=== PATIENT | female | born 1985 | race Caucasian/White ===

== ENCOUNTER 2017-09-11 15:32 | Emergency (ER) | payer MEDICAID, SELFPAY ==
[2017-09-11 15:33] VITALS: BP 107/75; PULSE 143; RESP 22; TEMP 37.6; O2SAT 98; BMI 32.2
[2017-09-11] MEDS: Acetaminophen 325 MG Tablet 650 MG PO (15:59)
[2017-09-11] MEDS: 0.9% Normal Saline 1,000 ML 1000 ML IV ×2 (16:02→17:44)
[2017-09-11 16:04] VITALS: PULSE 134
[2017-09-11 16:21] LABS: Absolute Lymphocyte Count 0.65 X10^3/ul (0.83-4.51); Absolute Neutrophil Count 10.6 X10^3/uL (2.0-7.7); Basophil# 0.01 X10^3/uL; Basophil% 0.1 % (0-1); Eosinophil# 0.03 X10^3/uL; Eosinophils% 0.3 % (0-5); Hematocrit 37.6 % (37-47); Hemoglobin 12.3 g/dl (12.0-15.0); Lymphocyte # 0.65 X10^3/ul (4.0); Lymphocyte % 5.4 % (19-41); Mean Corp Hgb Conc 32.7 g/gl (32-36); Mean Corpuscular Hgb 28.4 pg (27.0-32.0); Mean Corpuscular Volume 86.8 fL (81-99); Mean Platelet Vol. 9.8 fl (6.2-12.0); Monocyte# 0.67 X10^3/uL; Monocyte% 5.6 % (0-10); Neutrophil # 10.56 X10^3/uL (2.7-7.7); Neutrophil % 88.5 % (47-70); Platelet Count 291 K/mm3 (150-450); RBC Distribution Width CV 13.4 % (11.6-14.6); RBC Distribution Width SD 42.9 fl (35.1-43.9); Red Blood Count 4.33 M/mm3 (4.2-5.4); White Blood Count 11.9 K/mm3 (4.4-11.0)
[2017-09-11 16:23] LABS: Anion Gap 11 (5-15); BUN 4 mg/dL (7-18); BUN/Creat Ratio 7.5 RATIO (10-20); Calcium,Total 8.3 mg/dL (8.5-10.1); Chloride 104 mmol/L (98-107); Creatinine, Serum 0.54 mg/dL (0.55-1.02); EST Glomerular Filtration Rate 140 mL/min (>60); Est Glom Filt Rate - Afr Amer 169 mL/min (>60); Estimated Creatinine Clearance 123.72 ml/min; Glucose 93 mg/dL (74-106); Potassium 3.3 mmol/L (3.5-5.1); Sodium Level 137 mmol/L (136-145)
[2017-09-11 16:36] LABS: POSITIVE COUNT NO; POSITIVE DIFFERENTIAL NO; POSITIVE MORPHOLOGY NO
[2017-09-11 17:21] LABS: Color, Urine Yellow (Yellow); Glucose, Dipstick Normal (Normal); Leukocyte Esterase-Dipstick 500 /ul (Negative); Nitrite-Dipstick Negative (Negative); Occult Blood-Urine 10 /ul (Negative); Protein-Dipstick 15 mg/dl (Negative); Specific Gravity, Urine 1.015 (1.002-1.030); Urine Bilirubin Dipstick Negative (Negative); Urine Clarity Sl. Cloudy (Clear); Urine Urobilinogen Normal (Normal)
[2017-09-11 17:25] LABS: Ketone-Dipstick 150 mg/dl (Negative)
[2017-09-11 17:27] LABS: Bacteria RARE /hpf (None Seen); Mucous, Urine 3+ /hpf (<or=2+); Red Blood Cells-Urine 0-5 SEEN /hpf (0-5); Squamous Epithelial Cells - UA 5-10 SEEN /hpf (5-10); White Blood Cells 50-100 SEEN /hpf (0-5)
--- NOTE | 2017-09-11 17:34 | ED.VISSUMM ---
- ER Visit Summary Date of Service: 09/11/17 Chief Complaint: [Fever, headache] History of Present Illness: The patient is a 32 F [resents to the emergency department with symptoms that started more than 3 days ago. Patient was seen at the urgent care 3 days ago for runny nose and drainage from the eyes. Patient developed a fever today and a headache yesterday. Patient has had decreased appetite. Patient has had mild cough. Patient denies sore throat. Patient has had decreased urine output. Patient denies dysuria, urgency, or frequency.] Physical Examination: [HEENT-PERRLA, EOMI. Cranial nerves II through XII grossly intact. TMs clear. Mucous membranes high.. No adenopathy. Cardiovascular-regular and tachycardic. No murmurs auscultated. Lungs-clear to auscultation, chest wall stable without crepitus or subcu emphysema Abdomen-normoactive bowel sounds, soft, nontender, no rebound or rigidity, no peritoneal signs. Extremities-intact ?4, normal range of motion, normal pulses, atraumatic] Test Results: [CBC with differential showing 11.9, hemoglobin 12, hematocrit 38, platelets 291. Chemistries unremarkable. Influenza was positive for influenza A. Urinalysis was positive for infection.] Emergency Department Course and Treatment: [Patient was given 2 L normal saline fluid boluses in the emergency department and was given Rocephin 1 g IV. Patient is out of the window for Tamiflu as symptom onset greater than 3 days.] Treatment Plan: [She will be sent home with a prescription for Macrobid. I discussed case with Dr. Amanda Koehler the patient follow-up with her office.] Disposition: [Discharged to home in stable condition] Impression: [Fluids a Urinary tract infection] This note was generated with [employer] dictation software. It may contain incorrect words, spelling, and punctuation that were not noted in review of the chart prior to signing ED Disposition - Plan for ED Patient: Chief Complaint: General Illness Referrals: Care Physician,No Primary [Primary Care Provider] -
--- NOTE | 2017-09-11 17:43 | ED.DEP ---
ED Disposition - Plan for ED Patient: Chief Complaint: General Illness Instructions: Influenza, ED UTI Cystitis Female Prescriptions: Nitrofurantoin Macrocrystals [Macrobid] 100 mg PO Q12 #14 cap Referrals: Care Physician,No Primary [Primary Care Provider] - Jaye Haywood MD [STAFF PHYSICIAN] - 3-5 Days
[2017-09-11] MEDS: Ceftriaxone 1 GM/50 ML BAG IV (17:45)
[2017-09-11 17:53] VITALS: PULSE 115; RESP 16; TEMP 37.3; O2SAT 100
[2017-09-11 19:49] VITALS: BP 104/73; PULSE 116; RESP 16; O2SAT 100
[2017-09-11 20:30] VITALS: BP 104/73; PULSE 116; RESP 16; O2SAT 100
== END 2017-09-11 20:36 | disposition home or self-care (01) ==
PROVIDERS: Emergency Provider Emergency Medicine
DX: N39.0 Urinary tract infection, site not specified (principal); J11.1 Influenza due to unidentified influenza virus with other respiratory manifestations
CPT/HCPCS: 80048; 81001; 85025; 87086; 87088; 87804; 99283; J7030; A4216

== ENCOUNTER 2017-10-12 19:05 | Outpatient (CLI) | payer MEDICAID, SELFPAY ==
[2017-10-12 19:31] VITALS: BMI 33.5
--- NOTE | 2017-10-13 10:19 | OB.TRI.NOTE ---
History of Present Illness Date of Service: 10/12/17 Reason For Visit: R/O LABOR Final MCKINLEY: 11/16/17 Gestational age: 35 Weeks and 1 Days Home Medications Medication Instructions Recorded Nitrofurantoin Macrocrystals 100 mg PO Q12 #14 cap 09/11/17 [Macrobid] Allergies nalbuphine HCl [From Nubain] Allergy (Verified 09/11/17 15:36) Hives oxycodone HCl [From Percocet] Allergy (Verified 09/11/17 15:36) Other NST - FHR Rate Baby A Baseline: 140 Variability:: Moderate Accelerations:: 15 x 15 Decelerations:: Variable NST Reactive:: Yes Uterine Activity:: quiet Impression/Plan Reactive NST for threatened PTL
== END 2017-10-12 20:40 | disposition home or self-care (01) ==
LOC: WPOUT 19:29 → WP 19:30
PROVIDERS: Visit Provider Obstetrics & Gynecology
DX: O60.03 Preterm labor without delivery, third trimester (principal); Z3A.35 35 weeks gestation of pregnancy
CPT/HCPCS: 59025; 59050; 99218; G0378

== ENCOUNTER 2017-11-14 12:20 | Inpatient (IN) | payer MEDICAID, SELFPAY ==
[2017-11-14 09:50] LABS: ROM Internal Control Test YES-OK TO RESULT pt. (Internal QC)
[2017-11-14 09:54] LABS: ROM Patient Test Negative (Negative)
[2017-11-14 10:27] VITALS: BMI 34.1
[2017-11-14 12:53] LABS: Hematocrit 36.2 % (37-47); Hemoglobin 11.9 g/dl (12.0-15.0); Mean Corp Hgb Conc 32.9 g/gl (32-36); Mean Corpuscular Hgb 27.7 pg (27.0-32.0); Mean Corpuscular Volume 84.4 fL (81-99); Mean Platelet Vol. 9.9 fl (6.2-12.0); Platelet Count 331 K/mm3 (150-450); RBC Distribution Width CV 14.2 % (11.6-14.6); Red Blood Count 4.29 M/mm3 (4.2-5.4); White Blood Count 12.1 K/mm3 (4.4-11.0)
[2017-11-14 12:54] LABS: Scan Indicated on CBC? Y/N NO
--- NOTE | 2017-11-14 13:39 | PCM.HP.OB ---
History Date of Admission: 11/14/17 Final MCKINLEY: 11/16/17 Gestational age: 39 Weeks and 5 Days History of this : GBS negative Pertinent Past Medical History: see [facility] H&P Allergies nalbuphine HCl [From Nubain] Allergy (Verified 09/11/17 15:36) Hives oxycodone HCl [From Percocet] Allergy (Verified 09/11/17 15:36) Other Current Medications Acetaminophen (Tylenol) 325 - 650 mg PO Q4H PRN PRN PRN Reason: PAIN OR FEVER >100.4F Al Hydroxide/Mg Hydroxide (Mylanta Ii) 15 - 30 ml PO Q4H PRN PRN PRN Reason: INDIGESTION Citric Acid/Sodium Citrate (Bicitra) 30 ml PO UD PRN Lactated Ringer's () 1,000 mls @ 50 mls/hr IV .Q20H FIDEL Ondansetron HCl (Zofran) 4 mg IV Q8H PRN PRN PRN Reason: NAUSEA Promethazine HCl (Phenergan) 6.25 - 12.5 mg IV Q4H PRN PRN; Protocol PRN Reason: IF NAUSEA PERSISTS Sodium Chloride () 5 - 15 ml IV UD FIDEL Smoking Status: Former smoker Alcohol: None Drug Use: none Number of Fetus(es): 1 Physical Exam General: Alert, Oriented x3 Abdomen: Soft, Non Tender, Non-Distended, No Hepato-splenomegaly Presentation: Cephalic Cervix Dilation (cm): 4 Station: -2 Effacement (%): 50 Assessment/Plan 32yo female @ 39&5 with ctxs Admit to L&D Early labor - augment with pitocin if needed, unable to AROM GBS negative EFW less than 4500g, patient with adequate pelvis FWB - fhts 135 with mod variability, occ variable or late decel, overall reassuring Pain - epidural Routine care
[2017-11-14] MEDS: Lactated Ringers 1,000 ML 50 ML IV ×2 (14:24→17:50)
[2017-11-14] MEDS: Oxytocin 30 units/NS 500 ml 30 UNITS/500 ML IV.SOLN IV (14:26)
[2017-11-14] MEDS: fentaNYL-bupivacaine (epidural) 100 ML BAG EPIDURAL (15:54)
--- NOTE | 2017-11-14 16:25 | PCM.PN.BLA ---
Progress Note Called to room for decel Fhts now 135 with mod variability with accels & variables, s/p decel of 6 minutes with jules in 60's, now fhts reassuring tocos Q 2-3 min AROM blood tinged fluid A&P:suspect placenta abruption check labs plan for in maternal & status remain reassuring
[2017-11-14 16:49] LABS: Partial Thromboplast Time 25.2 Seconds (24.1-36.2); Prothrombin Time (Protime)PT. 13.4 SECONDS (11.7-14.9)
[2017-11-14 16:58] LABS: Fibrinogen 522 mg/dl (203-444)
[2017-11-14] MEDS: Amnioinfusion- 0.9% NS 1,000 ML IV.SOLN. INTRA-UTER (17:50)
[2017-11-14] MEDS: Oxytocin 30 units/NS 500 ml 30 UNITS/500 ML IV.SOLN 334 UNITS IV (18:54)
--- NOTE | 2017-11-14 19:09 | PCM.OB.VAG ---
Vaginal Delivery Maternal Presentation: Active Labor Amniotic Membrane Rupture Type: Artificial Amniotic Fluid Description: Bloody Final MCKINLEY: 11/16/17 Gestational age: 39 Weeks and 5 Days Date of Procedure: 11/14/17 Pre-Operative Diagnosis: Labor Post-Operative Diagnosis: Labor, Suspected placental abruption Surgery/ Procedure Performed: Spontaneous Vaginal Delivery Type of Anesthesia: Epidural Description of Procedure: Patient rim/C/+2. She was prepped & draped. She pushed once & was c/c/+2. Patient pushed & was having deep variables with pushing. With her next push the ritgen maneuver performed to expedite delivery of the head. Patient pushed again & easily delivered the shoulders & body. placed on maternal abdomen where 3vc clamped & cut. taken to warmer where coroner's juror present. Placenta delivered with gentle traction. Good uterine tone obtained. Presentation: MOISES Placental Delivery Description: Expressed Placenta Disposition: [facility] Cord Vessel Description: 3 Vessels Cord Entanglement: Around neck x 1, loose Drain: Calzada to straight drain Estimated Blood Loss: 300ml Infant A gender: Male (1 minute): 7 (5 minute): 8 Episiotomy Description: None Laceration: None Medications given after delivery: IV Pitocin Complications: None
--- NOTE | 2017-11-14 19:18 | OP.PCM_ITS ---
Vaginal Delivery Maternal Presentation: Active Labor Amniotic Membrane Rupture Type: Artificial Amniotic Fluid Description: Bloody Final MCKINLEY: 11/16/17 Gestational age: 39 Weeks and 5 Days Date of Procedure: 11/14/17 Pre-Operative Diagnosis: Labor Post-Operative Diagnosis: Labor, Suspected placental abruption Surgery/ Procedure Performed: Spontaneous Vaginal Delivery Type of Anesthesia: Epidural Description of Procedure: Patient rim/C/+2. She was prepped & draped. She pushed once & was c/c/+2. Patient pushed & was having deep variables with pushing. With her next push the ritgen maneuver performed to expedite delivery of the head. Patient pushed again & easily delivered the shoulders & body. placed on maternal abdomen where 3vc clamped & cut. taken to warmer where major gifts manager present. Placenta delivered with gentle traction. Good uterine tone obtained. Presentation: MOISES Placental Delivery Description: Expressed Placenta Disposition: [facility] Cord Vessel Description: 3 Vessels Cord Entanglement: Around neck x 1, loose Drain: Calzada to straight drain Estimated Blood Loss: 300ml Infant A gender: Male (1 minute): 7 (5 minute): 8 Episiotomy Description: None Laceration: None Medications given after delivery: IV Pitocin Complications: None
[2017-11-14] MEDS: Oxytocin 30 units/NS 500 ml 30 UNITS/500 ML IV.SOLN 167 UNITS IV (19:24)
[2017-11-14] MEDS: 0.9% Saline Lock 10 ML Syringe IV (20:31)
[2017-11-14 21:10] VITALS: BP 115/63; PULSE 100; RESP 18; TEMP 36.7
[2017-11-14] MEDS: Ibuprofen 600 MG Tablet PO (22:46)
--- NOTE | 2017-11-14 23:13 | NURSING ---
epidural catheter removed, blue tip intact.
[2017-11-14 23:51] VITALS: BP 103/56; PULSE 100; RESP 18; TEMP 36.7; O2SAT 98
[2017-11-15 00:24] LABS: HIV - WCH Non-Reactive (Nonreactive)
[2017-11-15 03:40] VITALS: BP 109/53; PULSE 82; RESP 16; TEMP 36.5
[2017-11-15 08:00] VITALS: BP 96/61; PULSE 83; RESP 16; TEMP 36.8
--- NOTE | 2017-11-15 08:11 | PCM.DCVAG ---
Discharge Diet: No Restrictions Discharge Activity: May Drive, May Shower May resume sexual activity in: 6 weeks Weight Bearing Status: Weight bearing as tolerated Additional Instructions: If you experience any of the following, contact your healthcare provider. Bleeding that soaks a pad every hour for 2 hours Fever 100.4 or higher Unrelieved incision or abdominal pain Swelling, redness, discharge or bleeding from your incision or episiotomy site Your incision begins to separate Problems urinating (including inability to urinate or burning while urinating). Visual changes Severe headache Flu-like symptoms Pain or redness in one of both of your breasts Pain, warmth, tenderness or swelling in your legs, especially the calf area Frequent nausea and vomiting Symptoms of depression or anxiety If you experience any of the following, call 911 or go to the nearest Emergency Room. Chest pain Problems breathing Seizure activity Partial or complete paralysis of a body part, slurred speech, weakness or drooping of the face, or a sudden inability to walk or hold your balance Allergies/Adverse Reactions: Allergies nalbuphine HCl [From Nubain] Allergy (Verified 09/11/17 15:36) Hives oxycodone HCl [From Percocet] Allergy (Verified 09/11/17 15:36) Other Primary Care Physician: Care Physician,No Primary [Primary Care Provider] -
--- NOTE | 2017-11-15 08:12 | DCINST_ITS ---
Discharge Diet: No Restrictions Discharge Activity: May Drive, May Shower May resume sexual activity in: 6 weeks Weight Bearing Status: Weight bearing as tolerated Additional Instructions: If you experience any of the following, contact your healthcare provider. * Bleeding that soaks a pad every hour for 2 hours * Fever 100.4 or higher * Unrelieved incision or abdominal pain * Swelling, redness, discharge or bleeding from your incision or episiotomy site * Your incision begins to separate * Problems urinating (including inability to urinate or burning while urinating) . * Visual changes * Severe headache * Flu-like symptoms * Pain or redness in one of both of your breasts * Pain, warmth, tenderness or swelling in your legs, especially the calf area * Frequent nausea and vomiting * Symptoms of depression or anxiety If you experience any of the following, call 911 or go to the nearest Emergency Room. * Chest pain * Problems breathing * Seizure activity * Partial or complete paralysis of a body part, slurred speech, weakness or drooping of the face, or a sudden inability to walk or hold your balance Allergies/Adverse Reactions: Allergies nalbuphine HCl [From Nubain] Allergy (Verified 09/11/17 15:36) Hives oxycodone HCl [From Percocet] Allergy (Verified 09/11/17 15:36) Other Primary Care Physician: Care Physician,No Primary [Primary Care Provider] -
--- NOTE | 2017-11-15 08:13 | PCM.PN.OB ---
Subjective: No complaints - Physical Exam General: Alert, Oriented x3 Abdomen: Soft, Non Tender, Non-Distended, Gravid Extremities: No Calf Tenderness Vital Signs Temp Pulse Resp BP Pulse Ox 98.2 F 83 16 96/61 98 11/15/17 08:00 11/15/17 08:00 11/15/17 08:00 11/15/17 08:00 11/14/17 23:51 Oxygen Delivery Method Room Air Weight: 192 lb 10.944 oz Body Mass Index (BMI) 34.1 Intake and Output for Last 24 Hours 11/13/17 11/14/17 11/15/17 23:59 23:59 23:59 Intake Total 550 / 550 Output Total 200 / 200 1600 / 1600 Balance -200 / -200 -1050 / -1050 Laboratory Tests Past 24 Hrs 11/14/17 11/14/17 11/14/17 09:16 12:30 12:30 WBC 12.1 H RBC 4.29 Hgb 11.9 L Hct 36.2 L MCV 84.4 MCH 27.7 MCHC 32.9 RDW 14.2 RDW Differential 43.0 Plt Count 331 MPV 9.9 PT INR APTT Fibrinogen Vag Amniotic Fld Detect Negative HIV 1&2 Antibody Blood Type O NEGATIVE Antibody Screen NEGATIVE Screen Baby's Blood Type Baby's ZHANNA 11/14/17 11/14/17 11/15/17 16:25 21:50 05:00 WBC RBC Hgb Hct MCV MCH MCHC RDW RDW Differential Plt Count MPV PT 13.4 INR 1.0 APTT 25.2 Fibrinogen 522 H Vag Amniotic Fld Detect HIV 1&2 Antibody Non-Reactive Blood Type Antibody Screen Screen NEGATIVE Baby's Blood Type O POSITIVE Baby's ZHANNA NEGATIVE Medical Necessity - Tobacco Use Smoking Status: Former smoker Assessment/Plan PPD#1 Routine care Possible d/c home later today Mirena IUD at 6wk PP check
[2017-11-15 12:15] VITALS: BP 121/77; PULSE 94; TEMP 36.8
[2017-11-15 16:00] VITALS: BP 117/68; PULSE 98; TEMP 36.8
[2017-11-15 20:00] VITALS: BP 119/69; PULSE 98; RESP 16; TEMP 37; O2SAT 98
== END 2017-11-15 21:16 | disposition home or self-care (01) | DRG 372 ==
LOC: WPOUT 12:21 → WP 18:56
PROVIDERS: Admitting Provider Obstetrics & Gynecology; Visit Provider Obstetrics & Gynecology
DX: O45.93 Premature separation of placenta, unspecified, third trimester (principal); O69.81X0 Labor and delivery complicated by cord around neck, without compression, not applicable or unspecified; Z3A.39 39 weeks gestation of pregnancy; Z37.0 Single live birth; Z87.891 Personal history of nicotine dependence
CPT/HCPCS: 59025; 59050; 76815; 84112; 85027; 85384; 85461; 85610; 85730; 86703; 86850; 86900; 90384; 99218; J7030; J7120; A4216; G0378; J2790

== ENCOUNTER 2020-02-24 16:55 | Outpatient (CLI) | payer MEDICAID, SELFPAY ==
[2019-07-15 13:05] VITALS: BMI 32.2
[2020-02-24 17:20] VITALS: BP 121/77; PULSE 123; TEMP 37.3
[2020-02-24 17:26] VITALS: BMI 37.8
[2020-02-24 17:56] LABS: ROM Internal Control Test YES-OK TO RESULT pt. (Internal QC); ROM Patient Test Negative (Negative)
--- NOTE | 2020-02-25 05:23 | OB.TRI.NOTE ---
History of Present Illness Date of Service: 02/24/20 Was patient seen by the physician?: Yes Reason For Visit: R/O LABOR Date of Service: 02/24/20 Final MCKINLEY: 03/05/20 Final MCKINLEY Source: LMP Gestational age: 38 Weeks and 5 Days Allergies nalbuphine HCl [From Nubain] Allergy (Verified 02/24/20 17:26) Hives oxycodone HCl [From Percocet] Allergy (Verified 02/24/20 17:26) Other Laboratory Studies: Laboratory Tests 02/24/20 Range/Units 17:15 Vag Amniotic Fld Detect Negative (Negative) Physical Exam Vitals: Vital Signs Temp Pulse BP 99.1 F 123 H 121/77 H 02/24/20 17:20 02/24/20 17:20 02/24/20 17:20 General: Alert, Oriented x3 NST - FHR Rate Baby A Baseline: 140 Variability:: Moderate Accelerations:: 15 x 15 Decelerations:: None NST Reactive:: Yes FHR Category:: Category I Uterine Activity:: no ctx Impression/Plan @ 38.4 wks, not in labor rom + was negative no signs of labor dc home
== END 2020-02-24 18:10 | disposition home or self-care (01) ==
LOC: WPOUT 17:00 → OBT 17:01
PROVIDERS: Referring Provider Obstetrics & Gynecology; Visit Provider Obstetrics & Gynecology
DX: O09.293 Supervision of pregnancy with other poor reproductive or obstetric history, third trimester (principal); Z3A.38 38 weeks gestation of pregnancy; Z88.5 Allergy status to narcotic agent
CPT/HCPCS: 59025; 59050; 84112; 99218; G0378

== ENCOUNTER 2020-02-29 01:15 | Inpatient (IN) | payer MEDICAID, SELFPAY ==
[2020-02-29] VITALS (41 sets, daily range): BP systolic 97–140; BP diastolic 50–92; PULSE 82–133; RESP 15–16; TEMP 36.1–37.3; O2SAT 99–100; BMI 38.0
[2020-02-29] MEDS: Lactated Ringers 500 ML 999 ML IV (01:30)
[2020-02-29 01:40] LABS: Absolute Lymphocyte Count 2.63 X10^3/uL (0.83-4.51); Basophil# 0.04 X10^3/uL; Basophil% 0.2 % (0-1); Eosinophil# 0.05 X10^3/uL; Eosinophils% 0.3 % (0-5); Hemoglobin 12.1 g/dL (12.0-15.0); Lymphocyte # 2.63 X10^3/ul (4.0); Lymphocyte % 14.8 % (19-41); Mean Corp Hgb Conc 32.7 g/dL (32-36); Mean Corpuscular Hgb 26.7 pg (27.0-32.0); Mean Corpuscular Volume 81.5 fL (81-99); Mean Platelet Vol. 9.8 fl (6.2-12.0); Monocyte# 1.03 X10^3/uL; Monocyte% 5.8 % (0-10); NRBC Flagged by Analyzer 0 % (0-5); Neutrophil # 13.98 X10^3/uL (2.7-7.7); Neutrophil % 78.5 % (47-70); Platelet Count 371 K/mm3 (150-450); RBC Distribution Width CV 13.5 % (11.6-14.6); RBC Distribution Width SD 39.8 fl (35.1-43.9); Red Blood Count 4.54 M/mm3 (4.2-5.4); White Blood Count 17.8 K/mm3 (4.4-11.0)
[2020-02-29] MEDS: Lactated Ringers 1,000 ML 200 ML IV (02:01)
[2020-02-29] MEDS: fentaNYL-bupivacaine (epidural) 100 ML BAG EPIDURAL (02:35)
[2020-02-29] MEDS: Oxytocin 30 units/NS 500 ml 30 UNITS/500 ML IV.SOLN 334 UNITS IV (06:06)
--- NOTE | 2020-02-29 07:27 | PCM.HP.OB ---
- Problem List (1) Multiparous Status: Acute (2) Active labor at term Status: Acute (3) 38 weeks gestation of Status: Acute (4) Rh negative status during Status: Acute History Date of Admission: 02/28/20 Final MCKINLEY: 03/12/20 Final MCKINLEY Source: LMP Gestational age: 38 Weeks and 2 Days History of this : This is a 34 year-old, G 8, P 6, at 38 weeks gestational age who presents with contractions at 5 cm. She is not intact and does not know when membranes ruptured. Allergies nalbuphine HCl [From Nubain] Allergy (Verified 02/29/20 01:38) Hives nausea oxycodone HCl [From Percocet] Allergy (Verified 02/29/20 01:38) Other nausea Smoking Status: Former smoker Number of Fetus(es): 1 History Past Pregnancies: Past Pregnancies Delivery Date Name GA/ Weeks Outcome Route Wt Sex Labor Length Anesthesia Delivery Location Provider FOB Labs: see [facility] records Expected Delivery Method: Spontaneous Vaginal Physical Exam Vitals: Vital Signs Temp Pulse BP Pulse Ox 99.2 F H 96 115/57 L 100 02/29/20 05:01 02/29/20 07:16 02/29/20 07:16 02/29/20 05:00 Assessment/Plan All Active Problems Multiparous (Acute) Active labor at term (Acute) 38 weeks gestation of (Acute) Rh negative status during (Acute) Dehydration (Acute) Bronchitis (Acute) Viral syndrome (Acute) Sinus tachycardia (Acute) This is a 34 year-old, G 8, P 6, at 38 weeks gestational age who presents with contractions at 5 cm. She is ruptured for mec on exam and pt is unsure when she ruptured. - Admit for routine intrapartum care - Epidural prn - GBS neg - Rh neg - Anticipate vaginal delivery
--- NOTE | 2020-02-29 07:31 | PCM.OPRPT ---
Problem List (1) Multiparous Status: Acute (2) Active labor at term Status: Acute (3) 38 weeks gestation of Status: Acute (4) Rh negative status during Status: Acute Report of Operation Date of Procedure: 02/29/20 Pre-Operative Diagnosis: 38 week gestation, labor, SROM Post-Operative Diagnosis: As above Surgery/Procedure Performed:: Type of Anesthesia:: Epidural Special Medications: None Specimen's removed: Placenta Drains: Calzada Estimated Blood Loss (mL): 200 Description of Procedure: Pt was complete and pushing. She pushed with 1 contraction and head of was delivered over intact perineum. There was a loose nuchal cord x1 that was easily reduced. The shoulders followed by the body of the infant were delivered without any force or delay. The infant was placed on the maternal abdomen. The cord was clamped and cut after a 60 sec delay by the father of the baby. The placenta delivered with fundal massage. The placenta was noted to be normal-appearing and intact with a three-vessel cord. Uterus was explored x1. Fundus was firm and bleeding hemostatic. No lacerations noted. Instrument and sponge counts were correct. Vaginal sweep was performed. Grafts/Implants Used: None - Complications None - Admit VTE Documentation VTE Present on Admission: No Vaginal Delivery Maternal Presentation: Active Labor, Spontaneous Rupture of Membranes Surgery/ Procedure Performed: Spontaneous Vaginal Delivery Type of Anesthesia: Epidural Presentation: Vertex Placental Delivery Description: Expressed Cord Vessel Description: 3 Vessels Nuchal Cord Compression: Without compression Cord Entanglement: Around neck x 1, loose Drain: Calzada to straight drain Infant A gender: Male Episiotomy Description: None Laceration: None Medications given after delivery: IV Pitocin Complications: None
--- NOTE | 2020-02-29 08:19 | NURSING ---
attempt to drain bladder but unable to d/t head station
[2020-02-29] MEDS: Acetaminophen 500 MG Tablet 1000 MG PO (10:28)
--- NOTE | 2020-02-29 14:03 | CASEMGMT ---
Social Work Assessment Labor and Delivery Unit Date of Referral: 02/29/2020 Time of Referral: 10:48 Referred By: Dr. Adeola Bowden Date of Intervention: 02/29/2020 Time of Intervention: 14:03 Reason for Referral: Mother of baby (MOB) with history of Anxiety, MOB with a [id number] infant loss 8 months ago. History obtained from: MOB, Chart, Nursing staff. Household composition: MOB, Father of baby (FOB), Doni Dougherty, Leonie Dougherty (age 3), and four other adolescent boys (age 9, 12, 14, and did not get other). This , Nick Dougherty to join home with rest of family. Leonie and Nick share paternity. The other four children living in the home do not share paternity. MOB is now from the father of four older children and states, ?he is involved? and ?we get along.? MOB?s 6th child, Jesus Dougherty on 2018 after being hospitalized for 356 days from a heart defect. Jesus was 20 months old when he passed. MOB states that with this infant was not planned but has been accepted. MOB states to have had an IUD but ?that didn?t work.? MOB states plan to pursue sterilization. Patient's parent/guardian status: MOB and FOB have been together for 5 years. MOB states that FOB is involved and reports no concerns for safety with FOB. Medical History: MOB with history prior to this infant. MOB with vaginal delivery of this on 02/29/2020. Infant with Apgars of 8 and 9 at 1min and 5min. weight of 3095g. Plan is for infant to follow with Dr. Ellison after discharge. Educational Status: Completed high school. Currently works for [employer]. Has maternity leave. Denies any issues with comprehension or understanding. Financial Status: MOB works full-time. 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 MOB denies any financial concerns. MOB reports that FOB plans to take some time off to transition to life with this infant. Supplies: MOB reports to have all needed supplies including car seat and crib etc. MOB plans to bottle feed infant and states that bottle feeding is going well. Childcare/Caregiver(s): MOB states plan to be primary care give for while on maternity leave and then family with provide childcare. Other children in the home are currently with ?grandma.? Transportation: Denies any issues. Programs/Agencies Involved: Reports plan/intent to apply for [facility]. Children Services/Legal Issues: None Mental Health History: MOB denies any mental health history other than ?anxiety with beeping.? MOB states that beeping noises in hospital are a trigger for MOB due to lose of Jaxxon and lengthy hospital stay. MOB states that stay at [facility] has been pleasant and ?it is quiet here.? MOB denies any history of depression. MOB denies any suicidal thoughts/plans/intents or history of. Substance Use History: Denies. Family History: Did not assess. Maternal and Infant Drug Screens: None obtained. PHQ9: Did not trigger. Family/Social Stressors: Denies. MOB reports to believe that MOB is coping well with loss of Jaxxon in 2018. MOB states to be working through the grief process and is able to identify positive coping skills. Support Systems: MOB states to have support from family and friends along with FOB. Depression and Anxiety/Shaken Baby/Safe Sleeping: MOB aware of signs and symptoms of depression and anxiety . MOB educated on risk for PPD due to recent loss of [employer] and having another child so close together. MOB provided with [facility], PPD/Anxiety, Shaken Baby and Safe Sleeping resources/support information. MOB responding appropriately to ques for Shaken Baby and Safe Sleeping. ASSESSMENT: Met with MOB and infant in room. FOB is currently at home assisting with care of other children. MOB presenting with a positive and engaged affect. MOB holding infant and reports to have a connection with infant. MOB gazing often towards infant and smiling at this social science teacher. MOB states ?all things workout how they should? when talking about this and the recent loss of [employer]. MOB able to identify the challenges of grief and loss. MOB providing appropriate responses to questions about current grief stage. MOB denies any concerns on returning to home. Active support and listening provided. PLAN: Infant to discharge to home with MOB, FOB and other siblings. No other services requested or indicated. Scott Jama MSW, JS
[2020-02-29] MEDS: Ibuprofen 600 MG Tablet PO (19:58)
[2020-03-01] VITALS (7 sets, daily range): BP systolic 107–141; BP diastolic 59–69; PULSE 78–90; RESP 14–16; TEMP 36.2–36.8
--- NOTE | 2020-03-01 08:18 | PCM.PN.OB ---
Patient Problems: Active and Suspected Problems Multiparous (Acute) Active labor at term (Acute) 38 weeks gestation of (Acute) Rh negative status during (Acute) Subjective: pt seen at bedside, doing well. pt reports good pain control. lochia mild. bottle feeding. pt requesting dc home - Physical Exam Vitals/I&O's: Vital Signs Temp Pulse Resp BP Pulse Ox 97.7 F L 78 14 110/69 99 03/01/20 04:36 03/01/20 08:02 03/01/20 04:36 03/01/20 08:02 02/29/20 08:01 Oxygen Delivery Method Room Air Weight: 97.522 kg Body Mass Index (BMI) 38.0 Intake and Output for Last 24 Hours 02/28/20 02/29/20 03/01/20 23:59 23:59 23:59 Intake Total 1816.67 / 1816.67 Output Total 1050 / 1050 Balance 766.67 / 766.67 General: Alert, Oriented x3 Laboratory Results 02/29/20 10:30: Screen NEGATIVE, Baby's Blood Type A POSITIVE, Baby's ZHANNA NEGATIVE Current Medications Acetaminophen (Tylenol) 1,000 mg PO Q8H PRN PRN PRN Reason: Pain Score 1-3/10 Last Admin: 02/29/20 10:28 Dose: 1,000 mg Documented by: Bisacodyl (Dulcolax) 10 mg RECTAL UD PRN PRN Reason: If no BM Dibucaine (Dibucaine) 1 applic TOPICAL TID PRN PRN; Protocol PRN Reason: Discomfort Hydrocortisone (Hytone) 1 applic TOPICAL TID PRN PRN; Protocol PRN Reason: Discomfort Ibuprofen (Motrin) 600 mg PO Q6H PRN PRN PRN Reason: Pain Score 1-3/10 Last Admin: 02/29/20 19:58 Dose: 600 mg Documented by: Methylergonovine Maleate (Methergine) 0.2 mg IM X1 PRN PRN Reason: Excess bleeding/uterine atony Ondansetron HCl (Zofran) 4 mg IV Q4H PRN PRN PRN Reason: Nausea Senna/Docusate Sodium (Senokot-S, Robyn-Colace) 1 - 2 tablet PO DAILY PRN PRN PRN Reason: Constipation Simethicone (Mylicon) 80 mg PO PCHS PRN PRN Reason: Indigestion/Stomach pain Sodium Chloride () 5 - 15 ml IV UD PRN PRN Reason: SALINE FLUSH Medical Necessity - Tobacco Use Smoking Status: Former smoker Assessment/Plan All Active Problems Multiparous (Acute) Active labor at term (Acute) 38 weeks gestation of (Acute) Rh negative status during (Acute) Dehydration (Acute) Bronchitis (Acute) Viral syndrome (Acute) Sinus tachycardia (Acute) PPD#1, doing well routine care ambulation pain mgmt dc home
--- NOTE | 2020-03-01 08:20 | DCINST_ITS ---
Discharge Diet: No Restrictions Discharge Activity: Return to Normal Activity, May not drive while taking narcotic pain medications., May Shower May resume sexual activity in: 4-6 weeks Additional Activity Instructions:: Nothing in the vagina for 4-6 weeks. You may return to work/school in 6 weeks. Call your doctor if your incision/area has: Continuous Slow Oozing, Sudden Increased Bleeding, Increased Pain/ Swelling, Increased Redness, Foul Smelling Discharge Additional Instructions: If you experience any of the following, contact your healthcare provider. * Bleeding that soaks a pad every hour for 2 hours * Fever 100.4 or higher * Unrelieved incision or abdominal pain * Swelling, redness, discharge or bleeding from your incision or episiotomy site * Your incision begins to separate * Problems urinating (including inability to urinate or burning while urinating). * Visual changes * Severe headache * Flu-like symptoms * Pain or redness in one of both of your breasts * Pain, warmth, tenderness or swelling in your legs, especially the calf area * Frequent nausea and vomiting * Symptoms of depression or anxiety If you experience any of the following, call 911 or go to the nearest Emergency Room. * Chest pain * Problems breathing * Seizure activity * Partial or complete paralysis of a body part, slurred speech, weakness or drooping of the face, or a sudden inability to walk or hold your balance Allergies/Adverse Reactions: Allergies nalbuphine HCl [From Nubain] Allergy (Verified 02/29/20 01:38) Hives nausea oxycodone HCl [From Percocet] Allergy (Verified 02/29/20 01:38) Other nausea Medications to take at Discharge Ibuprofen [Motrin] 600 mg PO Q6H PRN PRN #30 tab 03/01/20 The following prescriptions were given: Ibuprofen [Motrin] 600 mg PO Q6H PRN PRN #30 tab PRN Reason: Pain Score 1-3/10 Transmission Status: Pending to [employer] [facility] When: Call to make an appointment with your doctor in 1-2 weeks and again at 6 weeks. Primary Care Physician: Care Physician,No Primary [Primary Care Provider] - Test Results: Test results from this visit will be discussed in further detail at your follow- up appointment, if applicable.
--- NOTE | 2020-03-01 10:18 | NURSING ---
infant transfered to [facility] pt emotional and tearful- support given pt into [facility] to be with
[2020-03-01] MEDS: Acetaminophen 500 MG Tablet 1000 MG PO (12:36)
--- NOTE | 2020-03-01 15:01 | CASEMGMT ---
Social Work Attempted to follow up with MOB on emotional support due to [facility] MOB not in nursery or room. Per nursing staff, MOB stepped out and will be back. Will continue to follow as needed. Scott EVANS, JS
--- NOTE | 2020-03-01 18:10 | CASEMGMT ---
Social Work Met with MOB and FOB in room. Infant continues to be in [facility]. Active support and listening provided. MOB reports to believe that I am doing okay. MOB states to have had conversation with nursing staff that if MOB would begin to have difficulty managing feelings of Anxiety that the doctor could be asked about a medication to help MOB with Anxiety. MOB states to be hopeful that infant is doing well and is looking forward to being able to feed this evening. Social Work to continue to follow as needed. Scott EVANS, JS
[2020-03-02 03:32] VITALS: BP 112/69; PULSE 76; RESP 16; TEMP 37
--- NOTE | 2020-03-02 07:23 | PCM.PN.OB ---
Patient Problems: Active and Suspected Problems Multiparous (Acute) Active labor at term (Acute) 38 weeks gestation of (Acute) Rh negative status during (Acute) Subjective: Pain well controlled. Average lochia. Some anxiety about being in the special care nursery. However, he is doing well and she feels reassured by that. - Physical Exam Vitals/I&O's: Vital Signs Temp Pulse Resp BP Pulse Ox 98.6 F 76 16 112/69 99 03/02/20 03:32 03/02/20 03:32 03/02/20 03:32 03/02/20 03:32 02/29/20 08:01 Oxygen Delivery Method Room Air Weight: 97.522 kg Body Mass Index (BMI) 38.0 Intake and Output for Last 24 Hours 02/29/20 03/01/20 03/02/20 23:59 23:59 23:59 Intake Total 1816.67 / 1816.67 Output Total 1050 / 1050 Balance 766.67 / 766.67 General: Alert, Cooperative, No apparent distress Current Medications Acetaminophen (Tylenol) 1,000 mg PO Q8H PRN PRN PRN Reason: Pain Score 1-3/10 Last Admin: 03/01/20 12:36 Dose: 1,000 mg Documented by: Bisacodyl (Dulcolax) 10 mg RECTAL UD PRN PRN Reason: If no BM Dibucaine (Dibucaine) 1 applic TOPICAL TID PRN PRN; Protocol PRN Reason: Discomfort Hydrocortisone (Hytone) 1 applic TOPICAL TID PRN PRN; Protocol PRN Reason: Discomfort Ibuprofen (Motrin) 600 mg PO Q6H PRN PRN PRN Reason: Pain Score 1-3/10 Last Admin: 02/29/20 19:58 Dose: 600 mg Documented by: Methylergonovine Maleate (Methergine) 0.2 mg IM X1 PRN PRN Reason: Excess bleeding/uterine atony Ondansetron HCl (Zofran) 4 mg IV Q4H PRN PRN PRN Reason: Nausea Senna/Docusate Sodium (Senokot-S, Robyn-Colace) 1 - 2 tablet PO DAILY PRN PRN PRN Reason: Constipation Simethicone (Mylicon) 80 mg PO PCHS PRN PRN Reason: Indigestion/Stomach pain Sodium Chloride () 5 - 15 ml IV UD PRN PRN Reason: SALINE FLUSH Medical Necessity - Tobacco Use Smoking Status: Former smoker Assessment/Plan All Active Problems Multiparous (Acute) Active labor at term (Acute) 38 weeks gestation of (Acute) Rh negative status during (Acute) Dehydration (Acute) Bronchitis (Acute) Viral syndrome (Acute) Sinus tachycardia (Acute) day #2 status post vaginal delivery. Patient is doing well. Discharge home today. Infant is doing well in the special care nursery.
[2020-03-02 08:30] VITALS: BP 120/78; PULSE 97; RESP 16; TEMP 37.3
[2020-03-02 17:20] VITALS: BP 112/88; PULSE 97; RESP 18; TEMP 36.7; O2SAT 98
== END 2020-03-02 17:20 | disposition home or self-care (01) | DRG 560 ==
PROVIDERS: Admitting Provider Obstetrics & Gynecology; Visit Provider Obstetrics & Gynecology
DX: O69.81X0 Labor and delivery complicated by cord around neck, without compression, not applicable or unspecified (principal); Z37.0 Single live birth; Z3A.38 38 weeks gestation of pregnancy; Z87.891 Personal history of nicotine dependence; Z67.91 Unspecified blood type, Rh negative
CPT/HCPCS: 59025; 59050; 85025; 85461; 86850; 86900; 86901; 90384; 99218; J7120; G0378; J2790

== ENCOUNTER → 2021-01-31 08:46 | Outpatient (CLI) | payer MEDICAID, SELFPAY ==
[2020-02-29 01:32] VITALS: BMI 38.0
[2021-01-31 13:59] LABS: Probe Check PASS; Specimen Processing Control PASS
== END ==
PROVIDERS: Visit Provider Family Medicine
DX: Z03.818 Encounter for observation for suspected exposure to other biological agents ruled out (principal)
CPT/HCPCS: 87635; U0005; U0003

== ENCOUNTER 2022-03-15 06:12 | Day surgery (SDC) | payer MEDICAID, SELFPAY ==
[2022-03-15] VITALS (8 sets, daily range): BP systolic 104–130; BP diastolic 61–87; PULSE 83–97; RESP 16–18; TEMP 36.2–36.8; O2SAT 95–99; BMI 34.2
[2022-03-15 06:46] LABS: Internal QC Validated? YES +Cl - CLEAR BKGD; Pregnancy, Urine Negative Negative
[2022-03-15] MEDS: Lactated Ringers 1,000 ML 15 ML IV (06:47)
[2022-03-15] MEDS: Bupivacaine 0.25% 30 ML Vial (07:03)
[2022-03-15 07:08] LABS: Hematocrit 40.9 % (37-47); Hemoglobin 13.2 g/dL (12.0-15.0); Mean Corp Hgb Conc 32.3 g/dL (32-36); Mean Corpuscular Hgb 29.2 pg (27.0-32.0); Mean Corpuscular Volume 90.5 fL (81-99); Mean Platelet Vol. 9.3 fl (6.2-12.0); Platelet Count 372 K/mm3 (150-450); RBC Distribution Width CV 13.2 % (11.6-14.6); RBC Distribution Width SD 43.6 fl (35.1-43.9); Red Blood Count 4.52 M/mm3 (4.2-5.4); White Blood Count 8.5 K/mm3 (4.4-11.0)
--- NOTE | 2022-03-15 07:22 | PCM.PN.BLA ---
Progress Note See the H&P that is photocopied into the chart. I have re-examined the patient. There are no clinical changes since date of exam.
--- NOTE | 2022-03-15 07:30 | FALS_PTH ---
PATIENT: VALORIE ZUNIGA LOC: [facility] [place] U#:[id number] AGE/SX: 36/F ROOM: RE03/15/[address]: Dr. Vicki Green, MDDOB: 1985 BED: DIS: 03/15/2022 SPEC #: [id number] RECD: 03/15/22 10:56 STATUS: JOAQUÍN PHYLLIS #: [id number] MARTÍN: 03/15/22 07:[address]: Vicki Green DEPT: SURGICAL PATHOLOGY RECD BY: Ankita Aguayo ENTERED: 03/15/22 11:30 SP TYPE: FALL TUBES OTHR DR: No Primary Care Phys Tissues: Fallopian tube Procedures: Surgery Specimen Level II HEADER OPERATION: Laparoscopic salpingectomy PRE-OP DIAGNOSIS: Sterilization TISSUE SUBMITTED: Bilateral fallopian tubes MICROSCOPIC DIAGNOSIS Bilateral fallopian tubes, bilateral salpingectomy: Bilateral fallopian tubes, no pathologic diagnosis. SJ:jose antonio 03/16/2022 MICROSCOPIC DESCRIPTION Slides are reviewed. GROSS DESCRIPTION Received in fixative is one container labeled with the patient's name and designated bilateral fallopian tubes. The specimen consists of bilateral fallopian tubes including fimbrial ends measuring 3.5 cm in length and 0.5 cm in diameter and 6.5 cm in length and 0.5 cm in diameter. The fallopian tubes are not identified as right or left. Sections reveal unremarkable cut surfaces. Clinical Appeals Specialist sections are submitted in two cassettes with each cassette containing one fallopian tube. / [place] 03/15/2022 TC:4 CPT: 39519 x2
[2022-03-15] MEDS: 0.9% Normal Saline 1,000 ML 15 ML IV (08:15)
--- NOTE | 2022-03-15 08:15 | DCINST_ITS ---
Discharge Instructions Procedure Other Diet Discharge Diet: No restrictions Activity May resume sexual activity in: 2 weeks Lifting Restrictions: 20-25 lbs Dressing / Incision Call your doctor if your incision/area has: Continuous Slow Oozing, Sudden Increased Bleeding, Increased Pain/ Swelling, Increased Redness, Foul Smelling Discharge and Swelling at the incision site Call your doctor if you observe: Fever of 101 or Higher, Inability to urinate, Inability to have a bowel movement, Using more than 1 pad per hour and Uncontrolled pain Additional Dressing/Incision Instructions:: You have skin glue over your incision sites, do not pick off. You may shower and let the soap and water run over the incision sites and dab dry. Follow Up Care Please Follow Up With: Vicki Green MD When: 1-2 weeks post OP if you need an appointment please call [phone] Test Results: Test results from this visit will be discussed in further detail at your follow- up appointment, if applicable. Discharge Plan Admission Attending Provider: Vicki Green Primary Care Provider: Care Physician,Tanna Primary Discharge Orders/Prescriptions Prescriptions: No Action buspirone 5 mg tablet 5 mg PO TID Label Comments: TAKE 1 TABLET BY MOUTH THREE TIMES DAILY norgestimate-ethinyl estradiol [Sprintec (28)] 0.25-35 mg-mcg Tablet 1 tab PO DAILY fluoxetine 20 mg capsule 60 mg PO DAILY Label Comments: Take 1 capsule by mouth once daily. Referrals / Follow Up: Care PhysicianTanna Primary [Primary Care Provider] - Disposition Disposition (needs filled in before D/C Order can be placed): Home, Self Care
--- NOTE | 2022-03-15 08:17 | OP.PCM_ITS ---
Report of Operation Date of Procedure: 03/15/22 Pre-Operative Diagnosis: desires sterilization Post-Operative Diagnosis: same Surgery/Procedure Performed:: Laparoscopic bilateral salpingectomy Description of Surgical Findings:: normal tubes and ovaries. Possible endometriosis on Right tube. Surgeon: Vicki Green stamp machine servicer: None (Burak Patel MS3) Type of Anesthesia: General and Local Special Medications: .25% marcaine Specimen's removed: bilateral fallopian tubes Drains: none Estimated Blood Loss (mL): <5 Fluids Replaced: 1000 Description of Procedure: After informed consent was obtained patient was taken to the operating room she was placed in supine position she was given anesthesia. She was then placed in [facility] stirrups and she was prepped and draped in normal sterile fashion. Bladder was drained prior to the start of procedure. At this time attention was turned to the vaginal portion where weighted speculum placed at posterior fornix vagina single-tooth tenaculum was used to gently grasp the internal the cervix. uterus was gently sounded to approximately 8 cm. Uterine manipulator was placed without difficulty. Legs then placed in parallel with th e abdomen the tenaculum and the weighted speculum were removed. 2 towel clamps were placed at level of umbilicus. Marcaine was injected infraumbilical and a small incision was made. The 5 mm trocar was placed under direct visualization. CO2 gas was used to insufflate the intra-abdominal cavity. Upon inspection no gross abnormalities appreciated- the uterus tubes and ovaries appeared to be normal. At this time then the LLQ and RLQ ports were placed First Marcaine was injected and small incision was made a knife and the 5 mm trocars were placed. At this time then tubes were traced back to the fimbriated ends. Enseal was used to coagulate and ligate along mesosalpinx bilaterally until tubes removed completely. Good hemostasis was appreciated. At this time procedure was deemed complete successful. The gas was desufflated on from the intra-abdominal cavity. The trochars were removed. Skin was closed using 4-0 Monocryl in a subcutaneous fashion. Dermabond glue was placed. Instrument lap and needle counts were correct ?2. The uterine manipulator was removed. Vaginal sweep was performed it was negative. There were no complications anticipated normal postoperative course for this patient. Grafts/Implants Used: none Procedure Start Time: 07:52 Procedure Stop Time: 08:15 Complications none Admit VTE Documentation VTE Present on Admission: Yes VTE Mechan Device Prophylaxis: SCD's VTE Pharm Prophylaxis ordered?: No Reason prophylaxis not ordered:: Procedure Not Indicated
== END 2022-03-15 10:53 | disposition home or self-care (01) ==
LOC: SDC 06:17 → AC 06:18
PROVIDERS: Referring Provider Obstetrics & Gynecology; Visit Provider Obstetrics & Gynecology
PROC: (CPT 58661; principal; 2022-03-15 07:15)
DX: Z30.2 Encounter for sterilization (principal); Z87.891 Personal history of nicotine dependence; F41.9 Anxiety disorder, unspecified; F32.A Depression, unspecified
CPT/HCPCS: 58661; 00840; 81025; 85027; 88302; J7120; C1760; J2405

== ENCOUNTER 2025-04-07 11:48 | Emergency (ER) | payer BC, SELFPAY ==
[2025-04-07 11:49] VITALS: BP 139/89; PULSE 93; RESP 18; TEMP 36.8; O2SAT 99; BMI 33.0
--- NOTE | 2025-04-07 12:04 | EDS_ITS ---
HPI History of Present Illness Chief Complaint: Eye Problem Informant: patient Onset/Context/Timing Location: Left Eye Onset: Today Context: Sudden Onset Timing: Continuous Worsened by: Opening her eye Relieved by: Nothing Associated Symptoms Associated Symptoms - Eyes: Burning, Drainage (Watery), Eyelid swelling (Mild), Foreign body sensation, Matting, Pain and Photophobia; Negative for Crusting or Itching Visual Changes: left: Blurred vision History of injury: Yes and Direct trauma Visual correction: Glasses Narrative Narrative: Patient presents with left eye pain that began today. Patient states she was playing with her son and he scratched her in her left eye. Patient admits to some blurred vision. Patient admits to some pain and burning in her left eye. Patient states she has a foreign body sensation in her left eye. Patient admits to some watery drainage. Patient also admits to some swelling of her eyelids and matting. [facility] Medical History Depression Anxiety Uses wheelchair Home Medications ?Medication ?Instructions ?Recorded ?Last Taken ?Type buspirone 5 mg tablet 5 mg PO TID 03/08/22 Unknown History fluoxetine 20 mg capsule 60 mg PO DAILY 03/08/22 Unkn own History norgestimate 0.25 mg-ethinyl 1 tab PO DAILY 03/08/22 U nknown History estradiol 0.035 mg tablet (Sprintec (28)) Allergy/AdvReac Type Severity Reaction Status Date / Time nalbuphine HCl (From Nubain) Allergy Hives Verified 04/07/25 11:50 oxycodone HCl (From Percocet) Allergy Other Verified 04/07/25 11:50 Surgical History Hx of cholecystectomy Hx of bilateral breast reduction surgery Social History household members: children Smoking Status: Former smoker ROS ROS ED Constitutional Constitutional ED: Denies chills or fever(s) Eyes Eyes: Reports blurry vision; Denies diplopia ENT ENT ED: Denies rhinorrhea or sore throat Cardiovascular Cardiovascular: Denies chest pain or palpitations Respiratory/Chest Respiratory/Chest: Denies cough or dyspnea Gastrointestinal Gastrointestinal: Denies nausea or vomiting Genitourinary Genitourinary ED: Denies dysuria or hematuria Musculoskeletal Musculoskeletal: Denies back pain or neck pain Integumentary Denies abscess or rash Neurologic Neurologic: Denies headache(s) or weakness Allergic/Immunologic Allergic/Immunologic ED: Denies mouth swelling or urticaria EXAM Physical Exam Const Vital Signs: 04/07/25 11:49 Temperature 98.2 F Temperature Source Oral Pulse Rate 93 Respiratory Rate 18 Blood Pressure 139/89 H Blood Pressure Mean 105 Pulse Ox 99 Oxygen Delivery Method Room Air Positive well nourished and well developed Constitutional Narrative: BMI is 33.0 General Appearance ED: well developed and NAD HEENT atraumatic Eyes Eyes Narrative: Pupils are equal, round, and reactive to light bilaterally. Extraocular muscles are intact. There is some mild conjunctival injection on the left. Anterior chambers are clear. There is no hyphema noted. Patient was unable to tolerate funduscopic examination. Tetracaine and fluorescein dye was applied. There is a horizontal linear abrasion over the inferior central cornea. There is a negative Abilio sign. Neck supple and no JVD Neuro oriented x3, CN's II-XII intact bilaterally, moves all extremities and no sensory deficits noted Sensorium / Orientation: alert Motor Exam: strength 5/5 throughout MDM MDM MDM Narrative Medical decision making narrative: Tetracaine and fluorescein dye was applied. Patient was given erythromycin ophthalmic ointment. Patient was instructed to apply this 4 times daily. Patient was instructed to follow-up with her primary care physician in 1 to 2 days for reevaluation. Patient was instructed to return if worse in any way. Patient understood and was agreeable with the plan. All questions were answered. Discharge Plan Triage Chief Complaint: Eye Problem ED Provider: Mark Mason Dx/Rx/DC Orders Clinical Impression: Corneal abrasion, left, Nicotine vapor product user, Elevated blood pressure reading Instructions: ED Corneal Abrasion Prescriptions: No Action buspirone 5 mg tablet 5 mg PO TID Patient Comments: TAKE 1 TABLET BY MOUTH THREE TIMES DAILY norgestimate-ethinyl estradiol [Sprintec (28)] 0.25-35 mg-mcg Tablet 1 tab PO DAILY fluoxetine 20 mg capsule 60 mg PO DAILY Patient Comments: Take 1 capsule by mouth once daily. Primary Care Provider: Rao Gardner SUPPLY CHAIN PLANNER Referrals: Care Physician,No Primary [Non-Staff] - Rao Gardner SUPPLY CHAIN PLANNER, SUPPLY CHAIN PLANNER-C [Primary Care Provider] - 2 Days Print Language: Egyptian Disposition Disposition: Home, Self Care
[2025-04-07] MEDS: Tetracaine 0.5% Ophthalmic Bottle 1 DRP OPHTHALMIC (12:27)
[2025-04-07] MEDS: Erythromycin Ophthalmic (NSY) 1 GM OPTH.TUBE 1 APPLIC LEFT EYE (12:55)
[2025-04-07 12:56] VITALS: BP 127/78; PULSE 80; RESP 16; TEMP 36.8; O2SAT 99
== END 2025-04-07 12:56 | disposition home or self-care (01) ==
PROVIDERS: Emergency Provider Emergency Medicine; PCP Nurse Practitioner Family; Visit Provider Emergency Medicine
DX: S05.02XA Injury of conjunctiva and corneal abrasion without foreign body, left eye, initial encounter (principal); R03.0 Elevated blood-pressure reading, without diagnosis of hypertension; Z90.49 Acquired absence of other specified parts of digestive tract; F17.291 Nicotine dependence, other tobacco product, in remission; W50.4XXA Accidental scratch by another person, initial encounter
CPT/HCPCS: 99283